=== PATIENT | male | born 1955 | race Caucasian/White ===

== ENCOUNTER → 2018-09-21 | Emergency (ER) | payer MEDICARE, MEDICAID ==
[~2018-09-21] VITALS: Ht 175.3 cm; Wt 93.2 kg
[2018-09-21 07:18] VITALS: BP 145/93
== END | disposition home or self-care (01) ==
LOC: ER 07:15
DX: S61.012D Laceration without foreign body of left thumb without damage to nail, subsequent encounter (principal); I12.9 Hypertensive chronic kidney disease with stage 1 through stage 4 chronic kidney disease, or unspecified chronic kidney disease; E11.22 Type 2 diabetes mellitus with diabetic chronic kidney disease; N18.9 Chronic kidney disease, unspecified; I25.10 Atherosclerotic heart disease of native coronary artery without angina pectoris; E78.00 Pure hypercholesterolemia, unspecified; J44.9 Chronic obstructive pulmonary disease, unspecified; Z90.49 Acquired absence of other specified parts of digestive tract; X58.XXXD Exposure to other specified factors, subsequent encounter
CPT/HCPCS: 99281

== ENCOUNTER 2020-03-25 12:21 | Emergency (ER) | payer MEDICARE, MEDICAID ==
[~2020-03-25] VITALS: Ht 175.3 cm; Wt 90.9 kg
[~2020-03-25 12:21] MED LIST: LIDOcaine 1% W/epiNEPHrine 1:200,000 10ml vial ONE
[2020-03-25 12:23] VITALS: BP 131/94
== END 2020-03-25 15:26 | disposition home or self-care (01) ==
LOC: ER 12:21
DX: S61.511A Laceration without foreign body of right wrist, initial encounter (principal); I25.10 Atherosclerotic heart disease of native coronary artery without angina pectoris; E78.00 Pure hypercholesterolemia, unspecified; I12.9 Hypertensive chronic kidney disease with stage 1 through stage 4 chronic kidney disease, or unspecified chronic kidney disease; N18.9 Chronic kidney disease, unspecified; J44.9 Chronic obstructive pulmonary disease, unspecified; E11.22 Type 2 diabetes mellitus with diabetic chronic kidney disease; F31.9 Bipolar disorder, unspecified; Z90.49 Acquired absence of other specified parts of digestive tract; Z95.1 Presence of aortocoronary bypass graft; Z98.890 Other specified postprocedural states; V89.2XXA Person injured in unspecified motor-vehicle accident, traffic, initial encounter; Y93.89 Activity, other specified; Y92.89 Other specified places as the place of occurrence of the external cause; Y99.8 Other external cause status
CPT/HCPCS: 12001; 99282

== ENCOUNTER 2021-01-24 20:10 | Observation (INO) | payer OTHER, MEDICARE, MEDICAID ==
[~2021-01-24] VITALS: Ht 175.3 cm; Wt 94.0 kg
[2021-01-24 21:45] LABS: BASOPHILS % (AUTO) 0.6 % (0-1); EOSINOPHILS # (AUTO) 0.2 X10'3 (0-0.9); EOSINOPHILS % (AUTO) 3.3 % (0-6); HEMATOCRIT 45.3 % (42.0-52.0); HEMOGLOBIN 15.9 g/dl (14.0-17.9); LYMPHOCYTES # (AUTO) 2.3 X10'3 (1.1-4.8); LYMPHOCYTES % (AUTO) 32.7 % (21-51); MEAN CORPUSCULAR HEMOGLOBIN 30.8 PG (27.0-31.0); MEAN CORPUSCULAR HGB CONC 35.1 g/dL (33.0-36.5); MEAN CORPUSCULAR VOLUME 87.6 FL (78-98); MEAN PLATELET VOLUME 7.1 FL (7.4-10.4); MONOCYTES # (AUTO) 0.5 X10'3 (0-0.9); MONOCYTES % (AUTO) 7.7 % (2-12); NEUTROPHILS % (AUTO) 55.7 % (42-75); PLATELET COUNT 207 X10'3 (140-440); RED BLOOD COUNT 5.17 X10'6 (4.70-6.10); WHITE BLOOD COUNT 7.1 X10'3 (4.5-11.0)
[2021-01-24] MEDS ORDERED: ICOS1CAP PO (21:51)
[2021-01-24] MEDS ORDERED: CYAN50TA2 PO (21:51)
[2021-01-24] MEDS ORDERED: LEVA15HF4 PO (21:51)
[2021-01-24] MEDS ORDERED: OMEP40CA21 PO (21:51)
[2021-01-24] MEDS ORDERED: RANO10005 PO (21:51)
[2021-01-24] MEDS ORDERED: ROSU40TA PO (21:51)
[2021-01-24] MEDS ORDERED: ALIR75PE5 SQ (21:51)
[2021-01-24] MEDS ORDERED: LISI20TA28 PO (21:51)
[2021-01-24] MEDS ORDERED: CHOL20004 PO (21:51)
[2021-01-24] MEDS ORDERED: PRAS10TA6 PO (21:51)
[2021-01-24] MEDS ORDERED: EMPA25TA PO (21:51)
[2021-01-24] MEDS ORDERED: TRAZ-256 PO (21:51)
[2021-01-24] MEDS ORDERED: OXCA600T37 PO (21:51)
[2021-01-24] MEDS ORDERED: UMEC1DIS PO (21:51)
[2021-01-24] MEDS ORDERED: DESV100T16 PO (21:51)
[2021-01-24] MEDS ORDERED: KETO15CR2 TOP (21:51)
[2021-01-24] MEDS ORDERED: CARV6.253 PO (21:51)
[2021-01-24] MEDS ORDERED: NITR0.4T51 SL (21:51)
[2021-01-24] MEDS ORDERED: IPRA3AMP31 IH (21:51)
[2021-01-24] MEDS ORDERED: ASPI-10 PO (21:51)
[2021-01-24] MEDS ORDERED: AMLO5TAB16 PO (21:51)
[2021-01-24] MEDS ORDERED: PREG100C55 PO (21:51)
[2021-01-24 21:52] LABS: D-DIMER 0.28 MG/L FEU (0-0.50)
[2021-01-24] MEDS ORDERED: aspirin 81mg tab.chew PO ONE (22:00)
[2021-01-24] MEDS: nitroGLYCERIN 0.4mg SUBLingual tab SL PRN ×2 (22:09→22:15)
[2021-01-24 22:10] LABS: ALANINE AMINOTRANSFERASE 51 U/L (12-78); ALBUMIN 3.6 G/DL (3.4-5.0); ALBUMIN/GLOBULIN RATIO 0.9 (1.1-1.5); ALKALINE PHOSPHATASE 82 IU/L (46-116); ANION GAP 13 (8-16); ASPARTATE AMINO TRANSFERASE 29 U/L (10-37); BILIRUBIN,TOTAL 0.9 MG/DL (0.1-1.0); BLOOD UREA NITROGEN 16 MG/DL (7-18); BUN/CREATININE RATIO 12.4 (5.4-32.0); CALCIUM 8.4 MG/DL (8.5-10.1); CHLORIDE 105 MMOL/L (99-107); CREATININE 1.29 MG/DL (0.60-1.10); SODIUM 140 MMOL/L (135-145); TOTAL CARBON DIOXIDE 22.4 MMOL/L (24-32); TOTAL PROTEIN 7.7 G/DL (6.4-8.2); eGFR 56 ML/MIN
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
[2021-01-24 22:20] LABS: GLUCOSE 186 MG/DL (70-104); POTASSIUM 3.8 MMOL/L (3.5-5.1)
[2021-01-25] VITALS (11 sets, daily range): BP systolic 104–145; BP diastolic 62–93
[2021-01-25] MEDS ORDERED: mag hydrox/Alum hydrox/simeth 30ml oral suspension PO PRN (00:40)
[2021-01-25] MEDS ORDERED: magnesium hydroxide 30ml (MOM) UD suspension PO PRN (00:40)
[2021-01-25] MEDS ORDERED: regadenoson 0.4mg/5ml syringe IV ONE (00:40)
[2021-01-25] MEDS ORDERED: nitroGLYCERIN 0.4mg SUBLingual tab SL PRN ×2 (00:40→06:20)
[2021-01-25] MEDS ORDERED: HYDROcodone/acetaminophen 10/325mg tab PO PRN (00:40)
[2021-01-25] MEDS ORDERED: ondansetron/PF 4mg/2ml inj IV PRN (00:40)
[2021-01-25] MEDS ORDERED: morphine 2 MG/ML inj. syringe IV PRN (00:40)
[2021-01-25] MEDS ORDERED: metoprolol tartrate 1mg/ml inj IV PRN (00:40)
[2021-01-25] MEDS ORDERED: HYDROcodone/acetaminophen 5mg/325mg tablet PO PRN (00:40)
[2021-01-25] MEDS ORDERED: aminophylline 250mg/10ml inj. IV PRN (00:40)
[2021-01-25] MEDS ORDERED: acetaminophen 325mg tablet PO PRN ×2 (00:40)
--- NOTE | 2021-01-25 02:00 | NUR ---
Pt. ambulatory to the bathroom with steady gait.
[2021-01-25 02:03] LABS: HEMOGLOBIN A1C 8.1 % (4.5-6.2)
--- NOTE | 2021-01-25 04:46 | NUR ---
Brian brizuela in ED - 01/25/21 at 0447 by [email or web address] Pt comfortable in hospital bed, aware of transport, this RN attempting to [facility].
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
[2021-01-25] MEDS ORDERED: ALIROCUMAB SQ SCH ×2 (06:20→06:26)
[2021-01-25] MEDS ORDERED: glucagon, human recombinant 1mg kit SUBCUT PRN (06:20)
[2021-01-25] MEDS ORDERED: dextrose ORAL solution 15 GM/59 ML bottle PO PRN ×2 (06:20)
[2021-01-25] MEDS ORDERED: MESSAGE TO PHARMACY PO ONE (06:20)
[2021-01-25] MEDS ORDERED: LEVALBUTEROL TARTRATE PO PRN (06:20)
[2021-01-25] MEDS ORDERED: dextrose 50%-water 50ml dispensing syringe IV PRN ×2 (06:20)
[2021-01-25] MEDS ORDERED: ketoconazole 2% cream 15gm TP PRN (06:20)
[2021-01-25] MEDS ORDERED: albuterol 2.5 MG/3 ML nebule NEB PRN (06:40)
[2021-01-25] MEDS ORDERED: EMPAGLIFLOZIN 25 MG PO SCH (08:00)
[2021-01-25] MEDS ORDERED: UMECLIDINIUM BRM PO SCH (08:00)
[2021-01-25] MEDS: enoxaparin 40mg/0.4ml syringe SUBCUT SCH (08:00)
[2021-01-25] MEDS ORDERED: VILANTEROL TR PO SCH (08:00)
[2021-01-25] MEDS ORDERED: prasugrel 10mg tablet PO SCH ×2 (08:00→11:58)
[2021-01-25] MEDS: venlafaxine 25mg tablet PO SCH ×3 (08:00→20:55)
[2021-01-25] MEDS ORDERED: ICOSAPENT ETHYL 1 GM PO SCH (08:00)
[2021-01-25] MEDS ORDERED: OXCARBAZEPINE 600 MG PO SCH (08:00)
[2021-01-25] MEDS: ipratropium/albuterol 3ml nebule IH SCH ×2 (10:00→20:08)
--- NOTE | 2021-01-25 10:14 | NUR ---
Pt. not available for morning SVN
--- NOTE | 2021-01-25 11:25 | NUR ---
PAGER ID: [phone] MESSAGE: [phone] [facility]IO [place] SCAN IS BACK WILL YOU PUT A DIET ORDER IN IF HE CAN EAT. CRISTINE [id number]
[2021-01-25] MEDS: ranolazine 500mg SR tablet (Q12H) PO SCH ×2 (11:59→19:27)
[2021-01-25] MEDS: cholecalciferol (vitamin D3) 1,000 unit (25mcg) tablet PO SCH (12:00)
[2021-01-25] MEDS: lisinopril 20mg tablet PO SCH (12:00)
[2021-01-25] MEDS: atorvastatin 20mg tablet PO SCH (12:01)
[2021-01-25] MEDS: aspirin 325mg tablet, delayed-release (Ecotrin) PO SCH (12:01)
[2021-01-25] MEDS: amLODIPine 5mg tablet PO SCH ×2 (12:03→19:26)
[2021-01-25] MEDS: carvedilol 6.25mg tablet PO SCH ×2 (12:04→19:24)
[2021-01-25] MEDS: pantoprazole 40mg Tablet.DR PO SCH (12:04)
[2021-01-25] MEDS: cyanocobalamin 500mcg tablet PO SCH (12:04)
[2021-01-25] MEDS: pregabalin 25mg capsule PO SCH ×2 (12:13→19:25)
[2021-01-25] MEDS: insulin Lispro (HumaLOG) vial - multi-dose SQ SCH ×2 (12:58→19:22)
--- NOTE | 2021-01-25 15:02 | NUR ---
DM Consult: Pt admit DX r/o NM per EMR. Hx DM A1C 8.1 takes daily jardiance per EMR. Pt would benefit from DM ed this admit prior to discharge. Will continue to follow. Addendum: 01/25/21 at [address] Amended: Links added.
[2021-01-25] MEDS ORDERED: insulin glargine (Lantus) pen - multi-dose SQ SCH (21:00)
[2021-01-25] MEDS ORDERED: traZODone 50mg tablet PO SCH (21:00)
[2021-01-26] VITALS (7 sets, daily range): BP systolic 90–115; BP diastolic 58–70
[2021-01-26] MEDS ORDERED: nitroGLYCERIN-Tridil 50MG/D5W 250 ML IV ONE (05:56)
[2021-01-26] MEDS ORDERED: verapamil 2.5 mg/ml inj IV ONE (05:56)
[2021-01-26] MEDS ORDERED: iohexol 350 MG/1 ML 200ml bottle ONE (05:57)
[2021-01-26] MEDS ORDERED: fentaNYL/PF 50MCG/1 ML 2ML syringe ONE (05:57)
[2021-01-26] MEDS ORDERED: midazolam 1 mg/ML 2ml injection ONE (05:57)
[2021-01-26] MEDS ORDERED: LIDOcaine 1% (10mg/ml)w/preservative injection 20ml MDV ONE (05:57)
[2021-01-26] MEDS ORDERED: heparin 1,000unit/ml 10ml vial 10 ML ONE (05:57)
[2021-01-26 06:29] LABS: BASOPHILS % (AUTO) 0.8 % (0-1); EOSINOPHILS # (AUTO) 0.2 X10'3 (0-0.9); EOSINOPHILS % (AUTO) 3.9 % (0-6); HEMATOCRIT 44.1 % (42.0-52.0); HEMOGLOBIN 15.4 g/dl (14.0-17.9); LYMPHOCYTES # (AUTO) 1.8 X10'3 (1.1-4.8); LYMPHOCYTES % (AUTO) 34.4 % (21-51); MEAN CORPUSCULAR HEMOGLOBIN 31.1 PG (27.0-31.0); MEAN CORPUSCULAR HGB CONC 34.9 g/dL (33.0-36.5); MEAN CORPUSCULAR VOLUME 89.2 FL (78-98); MEAN PLATELET VOLUME 7.5 FL (7.4-10.4); MONOCYTES # (AUTO) 0.5 X10'3 (0-0.9); MONOCYTES % (AUTO) 9.1 % (2-12); NEUTROPHILS # (AUTO) 2.8 X10'3 (1.8-7.7); NEUTROPHILS % (AUTO) 51.8 % (42-75); PLATELET COUNT 165 X10'3 (140-440); RED BLOOD COUNT 4.95 X10'6 (4.70-6.10); RED CELL DISTRIBUTION WIDTH 13.9 % (11.5-14.5); WHITE BLOOD COUNT 5.3 X10'3 (4.5-11.0)
[2021-01-26 07:03] LABS: ALANINE AMINOTRANSFERASE 47 U/L (12-78); ALBUMIN 3.5 G/DL (3.4-5.0); ALBUMIN/GLOBULIN RATIO 0.9 (1.1-1.5); ALKALINE PHOSPHATASE 71 IU/L (46-116); ASPARTATE AMINO TRANSFERASE 28 U/L (10-37); BLOOD UREA NITROGEN 21 MG/DL (7-18); BUN/CREATININE RATIO 16.8 (5.4-32.0); CALCIUM 8.6 MG/DL (8.5-10.1); CHOLESTEROL 157 MG/DL (0-200); CREATININE 1.25 MG/DL (0.60-1.10); GLUCOSE 143 MG/DL (70-104); HDL CHOLESTEROL 31 MG/DL (35-60); TOTAL PROTEIN 7.2 G/DL (6.4-8.2); eGFR 58 ML/MIN
[2021-01-26 07:04] LABS: CHOL/HDL RATIO 5.1 (0.00-4.99); LDL CHOLESTEROL 56 MG/DL (50-100); TRIGLYCERIDES 538 MG/DL (20-135)
[2021-01-26 07:26] LABS: ANION GAP 14 (8-16); CHLORIDE 104 MMOL/L (99-107); POTASSIUM 3.9 MMOL/L (3.5-5.1); SODIUM 141 MMOL/L (135-145)
[2021-01-26] MEDS: ipratropium/albuterol 3ml nebule IH SCH (07:33)
--- NOTE | 2021-01-26 07:52 | NUR ---
PAGER ID: [phone] MESSAGE: [phone] ROSALIO HEART CATH DONE, 0 NEW STENTS, HOME TODAY? [phone]
[2021-01-26] MEDS: insulin Lispro (HumaLOG) vial - multi-dose SQ SCH (08:25)
[2021-01-26] MEDS: atorvastatin 20mg tablet PO SCH (08:30)
[2021-01-26] MEDS: carvedilol 6.25mg tablet PO SCH (08:30)
[2021-01-26] MEDS: lisinopril 20mg tablet PO SCH (08:30)
[2021-01-26] MEDS: amLODIPine 5mg tablet PO SCH (08:30)
[2021-01-26] MEDS: pantoprazole 40mg Tablet.DR PO SCH (08:31)
[2021-01-26] MEDS: aspirin 325mg tablet, delayed-release (Ecotrin) PO SCH (08:31)
[2021-01-26] MEDS: venlafaxine 25mg tablet PO SCH (08:32)
[2021-01-26] MEDS: pregabalin 25mg capsule PO SCH (08:33)
[2021-01-26] MEDS: ranolazine 500mg SR tablet (Q12H) PO SCH (08:34)
[2021-01-26] MEDS: cholecalciferol (vitamin D3) 1,000 unit (25mcg) tablet PO SCH (08:35)
[2021-01-26] MEDS: cyanocobalamin 500mcg tablet PO SCH (08:36)
[2021-01-26] MEDS: enoxaparin 40mg/0.4ml syringe SUBCUT SCH (08:37)
== END 2021-01-26 12:25 | disposition home or self-care (01) ==
LOC: ER 20:10 → ED HOLD 01-25 00:39 → ORTHO 4S 01-25 08:00
PROVIDERS: ADMIT Internal Medicine; ATTEND Family Medicine
DX: I25.119 Atherosclerotic heart disease of native coronary artery with unspecified angina pectoris (principal); I12.9 Hypertensive chronic kidney disease with stage 1 through stage 4 chronic kidney disease, or unspecified chronic kidney disease; I25.2 Old myocardial infarction; E78.5 Hyperlipidemia, unspecified; J44.9 Chronic obstructive pulmonary disease, unspecified; N18.9 Chronic kidney disease, unspecified; E11.22 Type 2 diabetes mellitus with diabetic chronic kidney disease; Z87.891 Personal history of nicotine dependence; Z95.1 Presence of aortocoronary bypass graft; Z95.5 Presence of coronary angioplasty implant and graft
CPT/HCPCS: 36415; 71045; 78452; 80053; 80061; 82948; 83036; 83880; 84484; 85025; 85379; 93005; 93017; 93306; 93458; 94640; 94760; 96372; 96374; 96375; 99285; A9500; C1769; C1894; G0378; J1644; J1815; J2001; J2250; J2270; J2405; J2785; J3010; Q9967; 99152; A4620; A5120; J1650; J3490